=== PATIENT | female | born 1980 | race Caucasian/White ===

== ENCOUNTER 2019-03-02 11:16 | Emergency (ER) | payer BC ==
[~2019-03-02] VITALS: Ht 160 cm; Wt 63.5 kg
[2019-03-02 11:20] VITALS: BP_SYST 118
--- NOTE | 2019-03-02 11:26 | NUR ---
Patient to ER bed 03 to gown for evaluation. Side rails up.
--- NOTE | 2019-03-02 11:28 | NUR ---
Pt brought by self, A&Ox4, pt presents to ER with cough, congestion and bodyaches, skin pink and warm, respirations even and unlabored,cap refill <3.
--- NOTE | 2019-03-02 11:30 | NUR ---
Dr Gilliam at bedside examining patient.
[2019-03-02 12:19] VITALS: BP_SYST 135
--- NOTE | 2019-03-02 12:19 | NUR ---
Patient given written and verbal discharge instructions and verbalizes understanding. ER MD discussed with patient the results and treatment provided. Patient in stable condition. ID arm band removed. Rx of Azithromycin, Sudafed, Albuterol given. Patient educated on pain management and to follow up with PMD. Pain Scale 0/10. Opportunity for questions provided and answered. Medication side effect fact sheet provided.
== END 2019-03-02 12:19 | disposition home or self-care (01) ==
LOC: SED 11:16
DX: J40 Bronchitis, not specified as acute or chronic (principal); R03.0 Elevated blood-pressure reading, without diagnosis of hypertension; Z88.1 Allergy status to other antibiotic agents
CPT/HCPCS: 71045; 99283

== ENCOUNTER 2019-11-20 08:00 | Emergency (ER) | payer BC ==
[~2019-11-20] VITALS: Ht 162.6 cm; Wt 63.5 kg
[2019-11-20 10:52] LABS: STREPTOCOCCUS A SCREEN (RAPID) NEGATIVE (NEGATIVE)
--- NOTE | 2019-11-20 11:32 | NUR ---
Ambulatory to [facility] chair 1
--- NOTE | 2019-11-20 11:34 | NUR ---
ER Dr. Franklin at bedside examining patient.
[2019-11-20 11:40] VITALS: BP_SYST 121
--- NOTE | 2019-11-20 11:40 | NUR ---
Patient given written and verbal discharge instructions and verbalizes understanding. ER MD discussed with patient the results and treatment provided. Patient in stable condition. ID arm band removed. Rx of promethazine,tamiflu,motrin given. Patient educated on pain management and to follow up with PMD. Pain Scale 2. Opportunity for questions provided and answered. Medication side effect fact sheet provided.
== END 2019-11-20 11:40 | disposition home or self-care (01) ==
LOC: SED 08:00
DX: J11.1 Influenza due to unidentified influenza virus with other respiratory manifestations (principal)
CPT/HCPCS: 36415; 86403; 86710; 87081; 99283

== ENCOUNTER 2019-11-21 14:31 | Emergency (ER) | payer BC ==
[~2019-11-21] VITALS: Ht 162.6 cm; Wt 63.5 kg
[2019-11-21 14:52] VITALS: BP_SYST 133
--- NOTE | 2019-11-21 15:15 | NUR ---
Placed in [facility] 1. MSE completed by myself.
--- NOTE | 2019-11-21 15:20 | NUR ---
Pt brought by self, A&Ox4, pt presents to ER with weakness, cough , congestion , pt diagnosed with flu yesterday , skin pink and warm , cap refill <3, afebrile.
--- NOTE | 2019-11-21 15:25 | NUR ---
Radha Lovett DIRECTOR OF REIMBURSEMENT at bedside examining patient
[2019-11-21 15:55] VITALS: BP_SYST 133
--- NOTE | 2019-11-21 15:55 | NUR ---
Patient given written and verbal discharge instructions and verbalizes understanding. ER MD discussed with patient the results and treatment provided. Patient in stable condition. ID arm band removed. No Rx given. Patient educated on pain management and to follow up with PMD. Pain Scale 0/10. Opportunity for questions provided and answered. Medication side effect fact sheet provided.
== END 2019-11-21 15:55 | disposition home or self-care (01) ==
LOC: SED 14:31
DX: J11.1 Influenza due to unidentified influenza virus with other respiratory manifestations (principal)
CPT/HCPCS: 99283